=== PATIENT | female | born 1990 | race Caucasian/White ===

== ENCOUNTER 2018-02-01 15:35 | Emergency (ER) | payer BC ==
[~2018-02-01] VITALS: Ht 152.4 cm; Wt 63.6 kg
[2018-02-01 15:38] VITALS: TEMP 98.2
[2018-02-01] MEDS ORDERED: MINASTRIN (15:41)
[2018-02-01 16:45] LABS: BASO % 0.4 % (0.0-2.0); EOS % 0.1 % (0-4.0); GRAN # 8.7 (1.4-6.5); GRAN % 82.1 % (42.2-75.2); HEMATOCRIT 44.1 % (37.0-47.0); HEMOGLOBIN 15.3 g/dl (12.5-16.0); LYMPH # 1.3 (1.2-3.4); MEAN CELL VOLUME 87 fl (80.0-100.0); MEAN CORPUSCULAR HEMOGLOBIN 30 pg (27.0-31.0); MEAN CORPUSCULAR HGB CONC 35 g/dl (33.0-37.0); MEAN PLATELET VOLUME 8.6 fl (7.4-10.4); MONO # 0.5 (0.1-0.6); MONO % 4.9 % (1.7-9.3); PLATELET COUNT 335 K/mm3 (130-400); RED BLOOD COUNT 5.08 M/mm3 (4.10-5.30); REDCELL DISTRIBUTION WIDTH-CV 12.3 % (11.5-14.5)
[2018-02-01 17:02] LABS: CALCIUM 9.5 mg/dL (8.4-10.2); CREATININE, serum 0.72 mg/dL (0.52-1.25); POTASSIUM 3.9 mmol/L (3.4-5.0)
[2018-02-01 18:05] VITALS: BP 135/84; PULSE 86
== END 2018-02-01 18:05 | disposition home or self-care (01) ==
LOC: COL.ER 15:35
PROVIDERS: Emergency Medicine
DX: G89.18 Other acute postprocedural pain (principal); R10.11 Right upper quadrant pain

== ENCOUNTER → 2018-08-14 | Outpatient (CLI) | payer BC ==
[~2018-08-14] MED LIST: MINASTRIN
== END ==
LOC: COL.RAD 13:35
DX: R25.3 Fasciculation (principal); R51 Headache
CPT/HCPCS: A9585